=== PATIENT | female | born 1990 | race Caucasian/White ===

== ENCOUNTER 2017-09-14 10:41 | Day surgery (SDC) | payer OTHER | END 2017-09-14 13:06 | disposition home or self-care (01) | LOC: SDS 10:41 | DX: M23.200 Derangement of unspecified lateral meniscus due to old tear or injury, right knee (principal); Z53.9 Procedure and treatment not carried out, unspecified reason | CPT/HCPCS: 86850; 86900; 86901 ==

== ENCOUNTER 2017-11-09 09:09 | Day surgery (SDC) | payer OTHER ==
[2017-11-09] MEDS ORDERED: MIDAZOLAM 1 MG/ML 2 ML INJ (11:34)
[2017-11-09] MEDS ORDERED: FENTAnyl 50 MCG/ML VIAL (11:34)
[2017-11-09] MEDS: ROPIVACAINE 0.5 % 30 ML VIAL (12:17)
[2017-11-09] MEDS: EPINEPHrine 1 MG/ML 30 ML INJ IRR (12:18)
[2017-11-09] MEDS ORDERED: ONDANSETRON 4 MG INJ (12:30)
[2017-11-09] MEDS ORDERED: PROPOFOL 20 ML (12:30)
[2017-11-09] MEDS ORDERED: CEFAZOLIN 1 GM INJ (12:30)
[2017-11-09] MEDS ORDERED: LIDOCAINE 2% (SDV) 5 ML INJ (12:30)
[2017-11-09] MEDS ORDERED: ONDANSETRON 4 MG INJ IV ×2 (13:00)
[2017-11-09] MEDS ORDERED: HYDROmorphONE (0.2 MG/ML) 10ML SYG IV ×2 (13:00)
[2017-11-09] MEDS ORDERED: DIPHENHYDRAMINE 50 MG INJ IV (13:00)
[2017-11-09] MEDS ORDERED: METOCLOPRAMIDE 10 MG INJ IV (13:00)
[2017-11-09] MEDS ORDERED: MEPERIDINE 25 MG INJ IV (13:00)
[2017-11-09] MEDS ORDERED: FENTAnyl 50 MCG/ML VIAL IV (13:00)
[2017-11-09] MEDS ORDERED: HYDROCODONE/APAP (5/325) TAB PO (13:00)
[2017-11-09] MEDS: morphine 10 MG INJ IV (13:07)
[2017-11-09] MEDS: HYDROCODONE/APAP (10/325) TAB PO (14:29)
== END 2017-11-09 14:58 | disposition home or self-care (01) ==
LOC: SDS 09:09
DX: S83.281D Other tear of lateral meniscus, current injury, right knee, subsequent encounter (principal); X58.XXXD Exposure to other specified factors, subsequent encounter
CPT/HCPCS: 29881; 84703